=== PATIENT | female | born 2000 | race Caucasian/White ===

== ENCOUNTER 2022-03-25 01:45 | Emergency (ER) | payer OTHER ==
[~2022-03-25] VITALS: Ht 165.1 cm; Wt 98.4 kg
--- NOTE | 2022-03-25 03:06 | NUR ---
BIBS FOR S/I NO PLAN, SEEKING VOLUNTARY ADMISSION TO [facility]. PATIENT ALERT AND ORIENTED X3. AMBULATORY WITH NON LABORED BREATHING IN BED 14 ON MONITOR AND POX, ALL BELONGINGS TAKEN. PATIENT IN BED 14 IN A GOWN.
--- NOTE | 2022-03-25 03:07 | NUR ---
UNABLE TO PROVIDE URINE AT THIS TIME.
--- NOTE | 2022-03-25 03:07 | NUR ---
COVID TEST DONE AND SENT TO LAB
[2022-03-25 04:00] LABS: BASOPHILS # (AUTO) 0.1 K/uL (0.0-0.2); BASOPHILS % (AUTO) 0.5 % (0.0-2.0); EOSINOPHILS % (AUTO) 0.6 % (0.0-6.0); HEMATOCRIT 39 % (33-45); HEMOGLOBIN 13.1 g/dL (11.5-14.8); LYMPHOCYTES # (AUTO) 2.6 K/uL (0.8-4.8); LYMPHOCYTES % (AUTO) 16.3 % (20.0-44.0); MEAN CORPUSCULAR HGB CONC 33 g/dl (31.0-36.0); MEAN CORPUSCULAR VOLUME 89 fL (82-100); MONOCYTES # (AUTO) 1.3 K/uL (0.1-1.30); MONOCYTES % (AUTO) 7.9 % (2.0-12.0); NEUTROPHILS % (AUTO) 74.7 % (43.0-81.0); PLATELET COUNT (AUTO) 435 K/uL (150-450); RED BLOOD CELL COUNT(AUTO) 4.42 MIL/uL (4.0-5.2); WHITE BLOOD COUNT (AUTO) 16.1 K/uL (4.3-11.0)
[2022-03-25 04:10] LABS: CALCIUM, SERUM 9.2 mg/dL (8.5-10.1); CARBON DIOXIDE 27 mmol/L (21-32); CHLORIDE 101 mmol/L (98-107); CREATININE 1.1 mg/dL (0.6-1.3); GLUCOSE 82 mg/dL (74-106); POTASSIUM 3.4 mmol/L (3.5-5.1); SODIUM SERUM 135 mmol/L (136-145); UREA NITROGEN, BLOOD 15 mg/dL (7-18)
[2022-03-25 04:15] LABS: ALANINE AMINOTRANSFERASE 16 U/L (12-78); ALBUMIN 3.9 g/dL (3.4-5.0); ALCOHOL, BLOOD < 3 mg/dL (0-0); ALKALINE PHOSPHATASE 78 U/L (46-116); ASPARTATE AMINOTRANSFERASE 18 U/L (15-37); BILIRUBIN,DIRECT 0.1 mg/dL (0.0-0.2); BILIRUBIN,TOTAL 0.6 mg/dL (0.2-1.0); TOTAL PROTEIN, SERUM 8.2 g/dL (6.4-8.2)
[2022-03-25 04:16] LABS: ACETAMINOPHEN 0 ug/ml (10-30)
[2022-03-25 04:53] LABS: BILIRUBIN,URINE NEGATIVE (NEGATIVE); COLOR,URINE YELLOW (YELLOW); LEUKOCYTE ESTERASE ,URINE NEGATIVE (NEGATIVE); NITRITE, URINE NEGATIVE (NEGATIVE); PROTEIN,URINE TRACE mg/dl (NEGATIVE); UGLUCOSE NEGATIVE (NEGATIVE); UROBILINOGEN,URINE 0.2 EU/dL (0.2)
--- NOTE | 2022-03-25 04:55 | NUR ---
CLINICALS FAXED TO [facility]
[2022-03-25 05:00] LABS: BACTERIA,URINE Rare /HPF (None Seen); RBC,URINE 0-2 /HPF (0-2); SQUAMOUS EPITHELIAL CELL,UR Few /HPF (None Seen); WBC,URINE 0-2 /HPF (0-3)
--- NOTE | 2022-03-25 08:30 | NUR ---
Appropriate/responsive- answers questions. Lucid. Wanting "to leave" Dr jarrell notified for re-evaluation. Breakfast given. Tolerated well ate 100%
[2022-03-25 09:30] VITALS: BP 130/60
--- NOTE | 2022-03-25 09:32 | NUR ---
Cleared for discharge by MD- Patient discharged to home in stable condition. Written and verbal after care instructions given. Patient verbalizes understanding of instruction. Declines any longterm but given list of resources
== END 2022-03-25 09:31 | disposition home or self-care (01) ==
LOC: ER 01:45
DX: R45.851 Suicidal ideations (principal); Z20.822 Contact with and (suspected) exposure to COVID-19; D72.829 Elevated white blood cell count, unspecified; E87.6 Hypokalemia; Z59.00 Homelessness unspecified; F12.90 Cannabis use, unspecified, uncomplicated
CPT/HCPCS: 99285; 85025; 80048; 80076; 81001; 36415; 87426; 80143; 80320; 80307; C9803; G0480

== ENCOUNTER 2022-03-27 21:04 | Emergency (ER) | payer OTHER ==
[~2022-03-27] VITALS: Ht 165.1 cm; Wt 81.6 kg
--- NOTE | 2022-03-27 21:10 | NUR ---
TO ER BED 13. [id number] FROM [facility] FOR 4 WITNESSED IN BED SEIZURES. PT LAST SEIZURE 3YRS AGO. PT IS ALERT AND ORIENTED. AMBULATORY WITH STEADY GAIT. BREATHING IS EVEN AND NONLABORED. SEIZURE PRECAUTIONS IN PLACE. CONNECTED TO MONITOR. AWAITING MD ORDERS
--- NOTE | 2022-03-27 21:13 | NUR ---
DR. LAW KINNEY AT PT'S BEDSIDE
--- NOTE | 2022-03-27 21:32 | NUR ---
TERMITE EXTERMINATOR AT PT'S BEDSIDE
--- NOTE | 2022-03-27 21:33 | NUR ---
URINE COLLECTED AND SENT TO LAB
[2022-03-27 21:44] LABS: BASOPHILS # (AUTO) 0.1 K/uL (0.0-0.2); BASOPHILS % (AUTO) 0.4 % (0.0-2.0); EOSINOPHILS % (AUTO) 1.8 % (0.0-6.0); HEMATOCRIT 37 % (33-45); HEMOGLOBIN 12.1 g/dL (11.5-14.8); LYMPHOCYTES # (AUTO) 3.3 K/uL (0.8-4.8); LYMPHOCYTES % (AUTO) 26.4 % (20.0-44.0); MEAN CORPUSCULAR HGB CONC 32 g/dl (31.0-36.0); MEAN CORPUSCULAR VOLUME 90 fL (82-100); MONOCYTES # (AUTO) 0.7 K/uL (0.1-1.30); MONOCYTES % (AUTO) 5.5 % (2.0-12.0); NEUTROPHILS # (AUTO) 8.3 K/uL (1.8-8.9); NEUTROPHILS % (AUTO) 65.9 % (43.0-81.0); PLATELET COUNT (AUTO) 390 K/uL (150-450); RED BLOOD CELL COUNT(AUTO) 4.15 MIL/uL (4.0-5.2); WHITE BLOOD COUNT (AUTO) 12.7 K/uL (4.3-11.0)
[2022-03-27 21:58] LABS: ALANINE AMINOTRANSFERASE 18 U/L (12-78); ALBUMIN 3.5 g/dL (3.4-5.0); ALCOHOL, BLOOD < 3 mg/dL (0-0); ALKALINE PHOSPHATASE 75 U/L (46-116); ASPARTATE AMINOTRANSFERASE 18 U/L (15-37); BILIRUBIN,DIRECT 0.1 mg/dL (0.0-0.2); BILIRUBIN,TOTAL 0.3 mg/dL (0.2-1.0); CARBON DIOXIDE 26 mmol/L (21-32); CHLORIDE 105 mmol/L (98-107); CREATININE 0.9 mg/dL (0.6-1.3); GLUCOSE 97 mg/dL (74-106); SODIUM SERUM 138 mmol/L (136-145); TOTAL PROTEIN, SERUM 7.3 g/dL (6.4-8.2); UREA NITROGEN, BLOOD 18 mg/dL (7-18)
[2022-03-27 22:05] LABS: CALCIUM, SERUM 8.6 mg/dL (8.5-10.1)
[2022-03-27 22:06] LABS: VALPROIC ACID 58 ug/mL (50-100)
--- NOTE | 2022-03-27 22:21 | NUR ---
PT TAKEN TO CT VIA [facility]
--- NOTE | 2022-03-27 23:13 | NUR ---
per Kami at [facility] patient is good to back to [facility]
--- NOTE | 2022-03-27 23:22 | NUR ---
PER [facility], PT WILL BE TRANSPORTEDBACK TO [facility] IN 90 MINS TO 2 HOURS.
--- NOTE | 2022-03-27 23:30 | NUR ---
REPORT GIVEN TO MICHAEL NORIEGA FOR [facility]; [facility] [place] [phone] UN[address],
--- NOTE | 2022-03-28 00:55 | NUR ---
[facility] AT BED SIDE TO PATIENT CONSUMER MARKETER THE PT
--- NOTE | 2022-03-28 00:58 | NUR ---
PT DC TO [facility] VIA [facility]. VSS.
[2022-03-28 00:59] VITALS: BP 111/79
== END 2022-03-28 01:50 ==
LOC: ER 21:06
DX: G40.A09 Absence epileptic syndrome, not intractable, without status epilepticus (principal); Z60.2 Problems related to living alone
CPT/HCPCS: 36415; 70450-TC; 71045-TC; 80048-TC; 80076-TC; 80164-TC; 84703-TC; 85025-TC; 85730-TC; G0480

== ENCOUNTER 2022-04-26 00:16 | Emergency (ER) | payer OTHER ==
--- NOTE | 2022-04-26 00:30 | NUR ---
CALLED TO TRIAGE NO ANSWER
--- NOTE | 2022-04-26 01:00 | NUR ---
CALLED TO TRIAGE NO ANSWER
--- NOTE | 2022-04-26 01:20 | NUR ---
CALLED TO TRIAGE NO ANSWER
== END 2022-04-26 01:21 | disposition left against medical advice (07) ==
LOC: ER 00:18
DX: Z53.21 Procedure and treatment not carried out due to patient leaving prior to being seen by health care provider (principal)

== ENCOUNTER 2022-05-09 03:15 | Emergency (ER) | payer OTHER ==
[~2022-05-09] VITALS: Ht 165.1 cm; Wt 81.6 kg
[2022-05-09 03:43] VITALS: BP 135/65
--- NOTE | 2022-05-09 03:44 | NUR ---
Patient discharged to home in stable condition. Written and verbal after care instructions given. Patient verbalizes understanding of instruction.
== END 2022-05-09 03:45 | disposition home or self-care (01) ==
LOC: ER 03:22
DX: Z00.00 Encounter for general adult medical examination without abnormal findings (principal); Z71.1 Person with feared health complaint in whom no diagnosis is made; Z60.2 Problems related to living alone

== ENCOUNTER → 2022-07-29 | Emergency (ER) | payer OTHER ==
[~2022-07-29] VITALS: Ht 162.6 cm; Wt 104.3 kg
[2022-07-29 05:15] VITALS: BP 132/78
--- NOTE | 2022-07-29 05:15 | NUR ---
COVID ANTIGEN SWAB AND URINE COLLECTED AND SENT TO LAB
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
--- NOTE | 2022-07-29 05:23 | NUR ---
STORE STOCK ASSOCIATE AT PT'S BEDSIDE
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
--- NOTE | 2022-07-29 07:30 | NUR ---
Pt no longer in the room/department. Eloped
[2022-07-29 07:52] LABS: BILIRUBIN,URINE NEGATIVE (NEGATIVE); COLOR,URINE YELLOW (YELLOW); LEUKOCYTE ESTERASE ,URINE NEGATIVE (NEGATIVE); NITRITE, URINE NEGATIVE (NEGATIVE); PROTEIN,URINE NEGATIVE (NEGATIVE); UGLUCOSE NEGATIVE (NEGATIVE); UROBILINOGEN,URINE 0.2 EU/dL (0.2)
== END | disposition left against medical advice (07) ==
LOC: ER 03:39
DX: R45.851 Suicidal ideations (principal); F31.9 Bipolar disorder, unspecified; Z59.00 Homelessness unspecified; Z20.822 Contact with and (suspected) exposure to COVID-19; F19.10 Other psychoactive substance abuse, uncomplicated
CPT/HCPCS: 99285; 87426; 84703; 80307; 81003; A6403; C9803